=== PATIENT | female | born 1990 | race Hispanic/Latino ===

== ENCOUNTER 2017-03-27 23:52 | Emergency (ER) | payer BC, OTHER ==
[2017-03-28 00:16] LABS: Bilirubin Negative (Negative); Blood, Urine Trace (Negative); Clarity Clear (Clear); Glucose, Urine (Dipstick) Negative (Negative); Leukocyte Negative (Negative); Nitrite Negative (Negative); Protein, Urine (Dipstick) 100 mg/dL (Neg-Trace)
[2017-03-28 00:26] LABS: Specific Gravity, Urine Greater/Equal 1.030 (1.005-1.030)
[2017-03-28 00:27] LABS: Pregnancy Test - Urine (BHCG) Negative (Negative); Specific Gravity 1.043 (1.002-1.036)
[2017-03-28 00:28] LABS: Bacteria/HPF None Seen HPF (None Seen); Pregu Control Background? CLEAR/WHITE (CLR/WHITE); Pregu Control Bar Appear? YES (CONTROL BAR); WBC/HPF 0-3 HPF (0-3)
== END 2017-03-28 00:39 | disposition home or self-care (01) ==
LOC: MADERS 23:52
DX: J11.1 Influenza due to unidentified influenza virus with other respiratory manifestations (principal); R35.0 Frequency of micturition
CPT/HCPCS: 81003; 81015; 81025; 87086; 99283

== ENCOUNTER 2017-04-14 08:49 | Emergency (ER) | payer BC ==
[2017-04-14 10:01] LABS: Wet Prep Clue Cells Clue Cells Absent (None Seen); Wet Prep Trichomonas Trichomonas Absent (None Seen)
== END 2017-04-14 09:45 | disposition home or self-care (01) ==
LOC: MADERS 08:49
DX: Z20.2 Contact with and (suspected) exposure to infections with a predominantly sexual mode of transmission (principal)
CPT/HCPCS: 87210; 87491; 87591; 99283

== ENCOUNTER 2021-04-19 20:46 | Emergency (ER) | payer BC ==
[2021-04-19 21:27] LABS: Bilirubin Negative (Negative); Blood, Urine Trace (Negative); Glucose, Urine (Dipstick) Negative (Negative); Ketone, Urine 80 mg/dL (Negative); Leukocyte Negative (Negative); Nitrite Negative (Negative); Protein, Urine (Dipstick) Negative (Neg-Trace); Urobilinogen 0.2 mg/dL (Less than 2); pH, Urine 5.5 (5.0-9.0)
[2021-04-19 21:39] LABS: Clarity Hazy (Clear); Specific Gravity, Urine 1.032 (1.002-1.036)
[2021-04-19 21:40] LABS: Mucous/LPF 3+ LPF (<2+); WBC/HPF 0-3 HPF (0-3)
== END 2021-04-19 23:01 | disposition home or self-care (01) ==
LOC: MADERS 20:46
DX: O99.891 Other specified diseases and conditions complicating pregnancy (principal); R31.9 Hematuria, unspecified; M54.50 Low back pain, unspecified; Z3A.01 Less than 8 weeks gestation of pregnancy
CPT/HCPCS: 36415; 81003; 81015; 84702; 86900; 86901; 87086

== ENCOUNTER 2023-11-02 20:20 | Emergency (ER) | payer SELFPAY ==
[2023-11-02 21:12] LABS: Bilirubin Negative (Negative); Blood, Urine Negative (Negative); Clarity Clear (Clear); Glucose, Urine (Dipstick) Negative (Negative); Ketone, Urine Negative (Negative); Leukocyte Negative (Negative); Nitrite Negative (Negative); Protein, Urine (Dipstick) Negative (Neg-Trace); Urobilinogen 0.2 mg/dL (Less than 2); pH, Urine 6.5 (5.0-9.0)
[2023-11-02 21:16] LABS: CAUTI Indications for Culture Pelvic or flank pain; Pregnancy Test - Urine (BHCG) Negative (Negative); Pregu Control Background? CLEAR/WHITE (CLR/WHITE); Pregu Control Bar Appear? YES (CONTROL BAR); RBC/HPF 0-3 HPF (0-3); Specific Gravity 1.026 (1.002-1.036); Specific Gravity, Urine 1.026 (1.002-1.036); Squamous Epithelial 0-3 HPF (0-3); Urine Culture Reflex No No; WBC/HPF None Seen HPF (0-3)
[2023-11-02] MEDS ORDERED: Sodium Chloride 0.9% 1,000 ML ONE (21:39)
[2023-11-02] MEDS ORDERED: Acetaminophen 500 MG TAB ONE (21:39)
[2023-11-02 22:05] LABS: #Basophils 0.1 thou/uL (0.0-0.2); #Eosinphils 0.2 thou/uL (0.0-0.7); #Lymphocytes 2.2 thou/uL (1.20-3.40); #Monocytes 1.1 thou/uL (0.11-0.59); #Neutrophils 9.3 thou/uL (1.40-6.50); %Eosinophils 1.5 % (0.0-10.0); %Monocytes 8.3 % (0.0-10.0); %Neutrophils 72.2 % (42.0-75.0); Hematocrit 43.3 % (36.0-47.0); Mean Corpuscular Hemoglobin 26.4 pg (27.0-31.0); Mean Corpuscular Volume 87.9 fl (78.0-98.0); Mean Platelet Volume 8.9 fL (7.4-10.4); Platelet Count 290 10x3/uL (130-400); RBC Distribution Width 14.1 % (11.5-14.5); Red Blood Cell (RBC) Count 4.93 mill/uL (4.20-5.40); White Blood Cell (WBC) Count 12.9 10x3/uL (4.8-10.8)
[2023-11-02 23:10] LABS: ALT (SGPT) 28 U/L (8-55); AST (SGOT) 13 U/L (5-34); Albumin 3.5 g/dL (3.5-5.0); Alkaline Phosphatase 61 U/L (40-110); Anion Gap 12 mmol/L (10-20); BUN (Urea Nitrogen) 10 mg/dL (7.0-18.7); Bilirubin, Total Less than 0.2 mg/dL (0.2-1.2); Calc. Creatinine Clearance 0 mL/min (70-130); Calcium 8.5 mg/dL (7.8-10.44); Carbon Dioxide 23 mmol/L (22-29); Chloride 105 mmol/L (98-107); Estimated GFR 122; Globulin 3.3 g/dL (2.4-3.5); Glucose 90 mg/dL (70-105); Potassium 4.1 mmol/L (3.5-5.1); Protein, Total 6.8 g/dL (6.0-8.3); Sodium 136 mmol/L (136-145)
[2023-11-02] MEDS ORDERED: Ketorolac Tromethamine 30 MG (1 mL) VIAL ONE (23:30)
== END 2023-11-03 00:15 | disposition home or self-care (01) ==
LOC: MADERS 20:20
DX: R10.12 Left upper quadrant pain (principal); R11.0 Nausea
CPT/HCPCS: 74177; 80053; 81001; 81025; 85025; J1885; J7030